=== PATIENT | male | born 1960 | race Caucasian/White ===

== ENCOUNTER 2020-04-23 14:28 | Emergency (ER) | payer BC ==
[2020-04-24 17:27] LABS: SARS-CoV-2 MS2 Positive; SARS-CoV-2 N Gene Negative; SARS-CoV-2 S Gene Negative; SARS-CoV-2 by NAA Not Detected (NotDetected); SARS-CoV-2 orf1ab Negative
== END 2020-04-23 15:10 | disposition home or self-care (01) ==
LOC: BURERS 14:28
DX: J06.9 Acute upper respiratory infection, unspecified (principal); Z20.828 Contact with and (suspected) exposure to other viral communicable diseases; I10 Essential (primary) hypertension; E11.9 Type 2 diabetes mellitus without complications; Z87.891 Personal history of nicotine dependence
CPT/HCPCS: 87635; 99283; U0003

== ENCOUNTER 2021-06-29 11:18 | Emergency (ER) | payer BC, OTHER ==
[2021-06-29] MEDS ORDERED: Boostrix 0.5 ML (Tdap) VIAL ONE (11:31)
[2021-06-29] MEDS ORDERED: Amoxicillin/Potassium Clav 875 MG TAB ONE (12:15)
== END 2021-06-29 12:28 | disposition home or self-care (01) ==
LOC: BURERS 11:18
DX: S68.621A Partial traumatic transphalangeal amputation of left index finger, initial encounter (principal); I10 Essential (primary) hypertension; E11.9 Type 2 diabetes mellitus without complications; W27.0XXA Contact with workbench tool, initial encounter; Z23 Encounter for immunization; Z87.891 Personal history of nicotine dependence
CPT/HCPCS: 12002; 90471; 90715